=== PATIENT | female | born 1955 | race African-American/Black ===

== ENCOUNTER 2021-06-07 00:43 | Emergency (ER) | payer BC, OTHER ==
[~2021-06-07] VITALS: Ht 167.6 cm; Wt 65.4 kg
[2021-06-07] MEDS ORDERED: SODIUM CHLORIDE 0.9% 1,000 ML IV ONE (01:00)
[2021-06-07 02:28] LABS: BASOPHILS % 0.3 % (0.0-2.0); EOSINOPHILS % 0.7 % (0.0-5.0); HEMOGLOBIN. 13.8 g/dL (12.0-16.0); LYMPHOCYTES % 9.6 % (20.0-50.0); MEAN CORPUSCULAR HEMOGLOBIN 31.2 pg (28.0-32.0); MEAN CORPUSCULAR VOLUME 97.5 fL (81.0-99.0); MEAN PLATELET VOLUME 9.1 fl (7.4-10.4); MONOCYTES % 5.8 % (2.0-8.0); NEUTROPHILS % 83.6 % (40.0-76.0); PLATELET 225 x1000/uL (130-400); RED BLOOD CELL COUNT 4.41 mill/uL (4.2-5.4); RED CELL DISTRIBUTION WIDTH 14.3 % (11.6-14.6)
[2021-06-07 02:32] LABS: CHLORIDE 109 mEq/L (98-107)
[2021-06-07 02:35] LABS: INR 1.1; PROTHROMBIN TIME 11.7 sec (9.6-11.0)
[2021-06-07 02:39] LABS: LDL CHOLESTEROL 139 mg/dL (5-100)
[2021-06-07 06:31] VITALS: BP 137/62
[2021-06-07] MEDS ORDERED: IOHEXOL-350 100 ML BOTTLE ONE (07:09)
== END 2021-06-07 06:51 | disposition short-term general hospital (02) ==
LOC: ER 00:43 → CANBEDREQ 05:12 → ER 06:51
DX: I63.9 Cerebral infarction, unspecified (principal); I10 Essential (primary) hypertension; Z79.82 Long term (current) use of aspirin
CPT/HCPCS: 36415; 70450; 70496; 70498; 71045; 80053; 82962; 83721; 84484; 85025; 85610; 93005; 96360; 99291; J7030; Q9967

== ENCOUNTER 2021-07-27 14:15 | Inpatient (IN) | payer OTHER ==
[~2021-07-27] VITALS: Ht 165.1 cm; Wt 71.2 kg
[2021-07-27 15:58] LABS: HEMATOCRIT. 37.8 % (36.0-48.0); HEMOGLOBIN. 11.8 g/dL (12.0-16.0); MEAN CORPUSCULAR HEMOGLOBIN 30.5 pg (28.0-32.0); MEAN CORPUSCULAR VOLUME 97.3 fL (81.0-99.0); MEAN PLATELET VOLUME 9.3 fl (7.4-10.4); PLATELET 345 x1000/uL (130-400); RED BLOOD CELL COUNT 3.89 mill/uL (4.2-5.4)
[2021-07-27 16:03] LABS: CHLORIDE 119 mEq/L (98-107)
[2021-07-27 16:05] LABS: INR 1.2
[2021-07-27] MEDS ORDERED: FUROSEMIDE 100MG/10ML VIAL IV STA (16:26)
[2021-07-27] MEDS ORDERED: CALCIUM GLUCONATE 100MG/ML 10ML VIAL IV ONE (16:30)
[2021-07-27] MEDS ORDERED: ALBUTEROL (0.083%) 2.5MG/3ML NEB HHN ONE (16:30)
[2021-07-27] MEDS ORDERED: SODIUM CHLORIDE 0.9% 1,000 ML IV ONE (16:30)
[2021-07-27] MEDS ORDERED: INSULIN REGULAR (HUMULIN R) 300UNITS/3ML VIAL IV ONE (16:30)
[2021-07-27] MEDS ORDERED: SODIUM BICARBONATE 8.4% 1 MEQ/ML 50ML SYR IV ONE (16:30)
[2021-07-27] MEDS ORDERED: DEXTROSE 50% WATER 50ML SYRINGE IV ONE (16:30)
[2021-07-27 16:37] LABS: PLATELET ESTIMATE NORMAL
[2021-07-27 17:37] LABS: BG BASE EXCESS -9.3 mmol/L (-2.0-2.0); BG CARBOXYHEMOGLOBIN 0.3 % (0.5-1.5); BG DEOXYHEMOGLOBIN 4.2 % (0.0-5.0); BG HCO3 ACT 14.3 mmol/L (22.0-26.0); BG METHEMOGLOBIN 0.4 % (0.0-1.5); BG OXYGEN SATURATION 95.8 % (92.0-98.5); BG OXYHEMOGLOBIN 95.1 % (94.0-97.0); BG PCO2 24.8 mmHg (35.0-45.0); BG PH 7.379 (7.350-7.450); BG PO2 85.8 mmHg (75.0-100.0); BG SAMPLE SITE RIGHT RADIAL; BG TOTAL HEMOGLOBIN 11.2 g/dL (12.0-18.0); BG VENT MODE ROOM AIR
[2021-07-27 17:40] LABS: CREATINE KINASE 150 IU/L (26-192)
[2021-07-27] MEDS: CALCIUM GLUCONATE 1GM PREMIX 50 ML IV SCH ×3 (18:05→21:44)
[2021-07-27 18:34] LABS: CLARITY URINE CLOUDY (CLEAR); COLOR URINE YELLOW (YELLOW); KETONES URINE TRACE (NEGATIVE); LEUKOCYTE ESTERASE URINE 3+ (NEGATIVE); NITRITE URINE NEGATIVE (NEGATIVE); OCCULT BLOOD URINE 2+ (NEGATIVE); PROTEIN URINE 2+ (NEGATIVE); SPECIFIC GRAVITY URINE 1.014 (1.005-1.030); UROBILINOGEN URINE 0.2 E.U./dL (0.2-1.0)
[2021-07-27] MEDS: SODIUM CHLORIDE 0.45% 1,000 ML IV SCH (21:29)
[2021-07-27 23:23] VITALS: BP 106/52
[2021-07-28] VITALS (14 sets, daily range): BP systolic 84–139; BP diastolic 32–77
[2021-07-28] MEDS ORDERED: ONDANSETRON HCL 4MG/2ML INJ IV PRN (01:45)
[2021-07-28] MEDS ORDERED: LIP40 PO (01:56)
[2021-07-28] MEDS ORDERED: CILO100T PO (01:56)
[2021-07-28] MEDS ORDERED: CLOP-31 PO (01:56)
[2021-07-28] MEDS ORDERED: POTA10CA42 PO (01:56)
[2021-07-28] MEDS: SODIUM CHLORIDE 0.45% 1,000 ML IV SCH ×2 (04:22→14:02)
[2021-07-28 08:01] LABS: HEMATOCRIT. 34.1 % (36.0-48.0); HEMOGLOBIN. 10.8 g/dL (12.0-16.0); MEAN CORPUSCULAR HEMOGLOBIN 30.3 pg (28.0-32.0); MEAN CORPUSCULAR VOLUME 96.2 fL (81.0-99.0); MEAN PLATELET VOLUME 9.6 fl (7.4-10.4); PLATELET 289 x1000/uL (130-400); RED BLOOD CELL COUNT 3.55 mill/uL (4.2-5.4); RED CELL DISTRIBUTION WIDTH 14.4 % (11.6-14.6)
[2021-07-28] MEDS: CLOPIDOGREL 75MG TABLET PO SCH (08:16)
[2021-07-28] MEDS: PANTOPRAZOLE SODIUM 40 MG/VIAL IV SCH (08:16)
[2021-07-28] MEDS: CEFTRIAXONE 1,000 MG in DEXTROSE 5% WATER 50 ML IV SCH (11:06)
[2021-07-28 13:43] LABS: PLATELET ESTIMATE NORMAL
[2021-07-28] MEDS: ENOXAPARIN 60MG/0.6ML SYR SUBCUT SCH (19:35)
[2021-07-28] MEDS: DEXTROSE 5% WATER 1,000 ML IV SCH (19:35)
[2021-07-28] MEDS: ATORVASTATIN CALCIUM 40MG TABLET PO SCH (21:40)
[2021-07-29] VITALS (12 sets, daily range): BP systolic 99–130; BP diastolic 39–89
[2021-07-29] MEDS: DEXTROSE 5% WATER 1,000 ML IV SCH ×2 (04:03→18:11)
[2021-07-29 07:19] LABS: HEMOGLOBIN. 10.8 g/dL (12.0-16.0); MEAN CORPUSCULAR HEMOGLOBIN 30.8 pg (28.0-32.0); MEAN CORPUSCULAR VOLUME 97.2 fL (81.0-99.0); MEAN PLATELET VOLUME 9.6 fl (7.4-10.4); PLATELET 254 x1000/uL (130-400); RED CELL DISTRIBUTION WIDTH 14.7 % (11.6-14.6)
[2021-07-29] MEDS: CEFTRIAXONE 1,000 MG in DEXTROSE 5% WATER 50 ML IV SCH (09:08)
[2021-07-29] MEDS: PANTOPRAZOLE SODIUM 40 MG/VIAL IV SCH (09:08)
[2021-07-29] MEDS: CLOPIDOGREL 75MG TABLET PO SCH (09:11)
[2021-07-29 12:50] LABS: PLATELET ESTIMATE NORMAL
[2021-07-29] MEDS: ENOXAPARIN 60MG/0.6ML SYR SUBCUT SCH (18:12)
[2021-07-29] MEDS: ATORVASTATIN CALCIUM 40MG TABLET PO SCH (21:47)
[2021-07-30] VITALS (13 sets, daily range): BP systolic 104–127; BP diastolic 27–80
[2021-07-30 07:05] LABS: HEMATOCRIT. 32.9 % (36.0-48.0); HEMOGLOBIN. 10.5 g/dL (12.0-16.0); MEAN CORPUSCULAR HEMOGLOBIN 30.5 pg (28.0-32.0); MEAN CORPUSCULAR VOLUME 95.6 fL (81.0-99.0); MEAN PLATELET VOLUME 9.4 fl (7.4-10.4); PLATELET 238 x1000/uL (130-400); RED BLOOD CELL COUNT 3.44 mill/uL (4.2-5.4); RED CELL DISTRIBUTION WIDTH 14.7 % (11.6-14.6)
[2021-07-30] MEDS: CEFTRIAXONE 1,000 MG in DEXTROSE 5% WATER 50 ML IV SCH (09:36)
[2021-07-30] MEDS: CLOPIDOGREL 75MG TABLET PO SCH (09:36)
[2021-07-30] MEDS: DEXTROSE 5% WATER 1,000 ML IV SCH (09:36)
[2021-07-30] MEDS: PANTOPRAZOLE SODIUM 40 MG/VIAL IV SCH (09:36)
[2021-07-30 10:42] LABS: PLATELET ESTIMATE NORMAL
[2021-07-30] MEDS: ENOXAPARIN 60MG/0.6ML SYR SUBCUT SCH (18:39)
[2021-07-30] MEDS: ATORVASTATIN CALCIUM 40MG TABLET PO SCH (20:41)
[2021-07-31] VITALS (12 sets, daily range): BP systolic 103–130; BP diastolic 51–64
[2021-07-31] MEDS: DEXTROSE 5% WATER 1,000 ML IV SCH (05:27)
[2021-07-31 06:15] LABS: HEMATOCRIT. 36.6 % (36.0-48.0); HEMOGLOBIN. 11.5 g/dL (12.0-16.0); MEAN CORPUSCULAR HEMOGLOBIN 30.5 pg (28.0-32.0); MEAN CORPUSCULAR VOLUME 96.9 fL (81.0-99.0); MEAN PLATELET VOLUME 9.6 fl (7.4-10.4); PLATELET 195 x1000/uL (130-400); RED BLOOD CELL COUNT 3.78 mill/uL (4.2-5.4)
[2021-07-31 08:07] LABS: ANTI-NUCLEAR ANTIBODIES DIRECT Negative (Negative)
[2021-07-31] MEDS: CEFTRIAXONE 1,000 MG in DEXTROSE 5% WATER 50 ML IV SCH (09:52)
[2021-07-31] MEDS: CLOPIDOGREL 75MG TABLET PO SCH (09:52)
[2021-07-31] MEDS: PANTOPRAZOLE SODIUM 40 MG/VIAL IV SCH (09:52)
[2021-07-31] MEDS: THIAMINE HCL 100MG TABLET PO SCH (09:52)
[2021-07-31] MEDS ORDERED: BISACODYL 10MG SUPP PR NR (11:15)
[2021-07-31 13:37] LABS: PLATELET ESTIMATE NORMAL
[2021-07-31] MEDS: ENOXAPARIN 60MG/0.6ML SYR SUBCUT SCH (17:08)
[2021-07-31] MEDS: ATORVASTATIN CALCIUM 40MG TABLET PO SCH (20:14)
[2021-08-01] VITALS (11 sets, daily range): BP systolic 100–136; BP diastolic 53–63
[2021-08-01] MEDS: DEXTROSE 5% WATER 1,000 ML IV SCH (02:28)
[2021-08-01 06:51] LABS: HEMATOCRIT. 33.6 % (36.0-48.0); HEMOGLOBIN. 10.8 g/dL (12.0-16.0); MEAN CORPUSCULAR HEMOGLOBIN 31.2 pg (28.0-32.0); MEAN CORPUSCULAR VOLUME 96.8 fL (81.0-99.0); MEAN PLATELET VOLUME 9.4 fl (7.4-10.4); PLATELET 205 x1000/uL (130-400); RED BLOOD CELL COUNT 3.48 mill/uL (4.2-5.4); RED CELL DISTRIBUTION WIDTH 14.6 % (11.6-14.6)
[2021-08-01 07:01] LABS: HEPATITIS B SURFACE ANTIGEN NEGATIVE
[2021-08-01 07:09] LABS: CHLORIDE 110 mEq/L (98-107)
[2021-08-01] MEDS: PANTOPRAZOLE SODIUM 40 MG/VIAL IV SCH (08:23)
[2021-08-01] MEDS: THIAMINE HCL 100MG TABLET PO SCH (08:23)
[2021-08-01] MEDS: CLOPIDOGREL 75MG TABLET PO SCH (08:23)
[2021-08-01] MEDS: CEFTRIAXONE 1,000 MG in DEXTROSE 5% WATER 50 ML IV SCH (08:28)
[2021-08-01] MEDS: SODIUM CHLORIDE 0.45% 1,000 ML IV SCH (09:51)
[2021-08-01] MEDS: FLUCONAZOLE 100MG TABLET PO SCH (17:00)
[2021-08-01] MEDS: ENOXAPARIN 60MG/0.6ML SYR SUBCUT SCH (17:00)
[2021-08-01 20:23] LABS: PLATELET ESTIMATE NORMAL
[2021-08-01] MEDS: ATORVASTATIN CALCIUM 40MG TABLET PO SCH (22:09)
[2021-08-02] VITALS (12 sets, daily range): BP systolic 108–134; BP diastolic 48–78
[2021-08-02] MEDS: SODIUM CHLORIDE 0.45% 1,000 ML IV SCH ×2 (01:30→20:35)
[2021-08-02 07:02] LABS: HEMATOCRIT. 33.5 % (36.0-48.0); HEMOGLOBIN. 10.7 g/dL (12.0-16.0); MEAN CORPUSCULAR HEMOGLOBIN 31.1 pg (28.0-32.0); MEAN CORPUSCULAR VOLUME 97.6 fL (81.0-99.0); MEAN PLATELET VOLUME 9.3 fl (7.4-10.4); PLATELET 196 x1000/uL (130-400); RED BLOOD CELL COUNT 3.44 mill/uL (4.2-5.4)
[2021-08-02] MEDS: PANTOPRAZOLE SODIUM 40 MG/VIAL IV SCH (08:23)
[2021-08-02] MEDS: THIAMINE HCL 100MG TABLET PO SCH (08:24)
[2021-08-02] MEDS: FLUCONAZOLE 100MG TABLET PO SCH (08:24)
[2021-08-02] MEDS: CLOPIDOGREL 75MG TABLET PO SCH (08:24)
[2021-08-02] MEDS: CEFTRIAXONE 1,000 MG in DEXTROSE 5% WATER 50 ML IV SCH (08:24)
[2021-08-02] MEDS ORDERED: POTASSIUM CHLORIDE 20MEQ/PACKET PO SCH (08:45)
[2021-08-02 11:54] LABS: PLATELET ESTIMATE NORMAL
[2021-08-02] MEDS: ENOXAPARIN 60MG/0.6ML SYR SUBCUT SCH (17:06)
[2021-08-02] MEDS: ATORVASTATIN CALCIUM 40MG TABLET PO SCH (20:35)
[2021-08-03] VITALS (9 sets, daily range): BP systolic 108–135; BP diastolic 49–79
[2021-08-03 06:57] LABS: HEMATOCRIT. 32.1 % (36.0-48.0); HEMOGLOBIN. 10.4 g/dL (12.0-16.0); MEAN CORPUSCULAR HEMOGLOBIN 31.2 pg (28.0-32.0); MEAN CORPUSCULAR VOLUME 96.3 fL (81.0-99.0); MEAN PLATELET VOLUME 9.4 fl (7.4-10.4); PLATELET 237 x1000/uL (130-400); RED BLOOD CELL COUNT 3.34 mill/uL (4.2-5.4); RED CELL DISTRIBUTION WIDTH 14.3 % (11.6-14.6)
[2021-08-03 07:02] LABS: PHOSPHORUS 1.4 mg/dL (2.5-4.9)
[2021-08-03] MEDS: FAMOTIDINE 20MG/2ML VIAL IV SCH (08:31)
[2021-08-03] MEDS: FLUCONAZOLE 100MG TABLET PO SCH (08:31)
[2021-08-03] MEDS: CLOPIDOGREL 75MG TABLET PO SCH (08:31)
[2021-08-03] MEDS: THIAMINE HCL 100MG TABLET PO SCH (08:31)
[2021-08-03 11:44] LABS: PLATELET ESTIMATE NORMAL
[2021-08-03] MEDS: SODIUM CHLORIDE 0.45% 1,000 ML IV SCH (12:34)
[2021-08-03] MEDS ORDERED: POTASSIUM PHOS,M-BASIC-D-BASIC 15 MMOL in DEXT 5% WATER 245 ML IV ONE (18:30)
[2021-08-03] MEDS ORDERED: MAGNESIUM 2 G PREMIX 50 ML IV ONE (18:30)
[2021-08-03] MEDS: ENOXAPARIN 60MG/0.6ML SYR SUBCUT SCH (19:11)
[2021-08-03] MEDS: ATORVASTATIN CALCIUM 40MG TABLET PO SCH (21:03)
[2021-08-04] VITALS: BP 123/64
[2021-08-04] MEDS: SODIUM CHLORIDE 0.45% 1,000 ML IV SCH ×2 (02:51→20:29)
[2021-08-04 04:00] VITALS: BP 112/71
[2021-08-04 08:00] VITALS: BP 131/68
[2021-08-04] MEDS: NYSTATIN POWDER 15GM TOP SCH ×3 (09:30→17:00)
[2021-08-04 09:50] LABS: PHOSPHORUS 2.2 mg/dL (2.5-4.9)
[2021-08-04] MEDS: FAMOTIDINE 20MG/2ML VIAL IV SCH (10:17)
[2021-08-04] MEDS: FLUCONAZOLE 100MG TABLET PO SCH (10:17)
[2021-08-04] MEDS: THIAMINE HCL 100MG TABLET PO SCH (10:17)
[2021-08-04 12:00] VITALS: BP 122/72
[2021-08-04 16:00] VITALS: BP 120/56
[2021-08-04] MEDS ORDERED: NALOXONE HCL 0.4MG/ML VIAL IV PRN (17:15)
[2021-08-04] MEDS: ENOXAPARIN 60MG/0.6ML SYR SUBCUT SCH (17:46)
[2021-08-04] MEDS: TRAMADOL 50MG TABLET PO PRN (17:47)
[2021-08-04 20:00] VITALS: BP 109/52
[2021-08-04] MEDS: ATORVASTATIN CALCIUM 40MG TABLET PO SCH (20:29)
[2021-08-05] VITALS: BP 107/49
[2021-08-05 04:00] VITALS: BP 110/60
[2021-08-05 05:29] LABS: BASOPHILS % 0.3 % (0.0-2.0); EOSINOPHILS % 1.5 % (0.0-5.0); HEMATOCRIT. 29.3 % (36.0-48.0); HEMOGLOBIN. 9.5 g/dL (12.0-16.0); LYMPHOCYTES % 13.3 % (20.0-50.0); MEAN CORPUSCULAR VOLUME 95.5 fL (81.0-99.0); MEAN PLATELET VOLUME 8.9 fl (7.4-10.4); NEUTROPHILS % 78.9 % (40.0-76.0); PLATELET 259 x1000/uL (130-400); RED BLOOD CELL COUNT 3.07 mill/uL (4.2-5.4); RED CELL DISTRIBUTION WIDTH 14.6 % (11.6-14.6)
[2021-08-05] MEDS ORDERED: POTASSIUM CHLORIDE 20MEQ TABLET SR PO SCH (07:15)
[2021-08-05 08:00] VITALS: BP 121/55
[2021-08-05 09:04] LABS: PHOSPHORUS 1.8 mg/dL (2.5-4.9)
[2021-08-05] MEDS: THIAMINE HCL 100MG TABLET PO SCH (10:17)
[2021-08-05] MEDS: FAMOTIDINE 20MG/2ML VIAL IV SCH (10:17)
[2021-08-05] MEDS: FLUCONAZOLE 100MG TABLET PO SCH (10:17)
[2021-08-05] MEDS: NYSTATIN POWDER 15GM TOP SCH (10:58)
[2021-08-05 12:00] VITALS: BP 126/69
[2021-08-05] MEDS ORDERED: POTASSIUM PHOS,M-BASIC-D-BASIC 15 MMOL in DEXT 5% WATER 245 ML IV SCH (13:00)
[2021-08-05] MEDS: SODIUM CHLORIDE 0.45% 1,000 ML IV SCH (13:52)
[2021-08-05 16:00] VITALS: BP 132/64
[2021-08-05] MEDS: ENOXAPARIN 60MG/0.6ML SYR SUBCUT SCH (18:10)
[2021-08-05 20:00] VITALS: BP 116/55
[2021-08-05] MEDS: ATORVASTATIN CALCIUM 40MG TABLET PO SCH (22:59)
[2021-08-06] VITALS: BP 125/59
[2021-08-06 04:00] VITALS: BP 141/69
[2021-08-06] MEDS: SODIUM CHLORIDE 0.45% 1,000 ML IV SCH ×2 (05:29→22:16)
[2021-08-06] MEDS ORDERED: CEFAZOLIN 1000MG PREMIX 50 ML IV NR (07:00)
[2021-08-06 07:41] LABS: INR 1.1
[2021-08-06 07:54] LABS: BASOPHILS % 0.3 % (0.0-2.0); EOSINOPHILS % 1.2 % (0.0-5.0); HEMATOCRIT. 28.7 % (36.0-48.0); HEMOGLOBIN. 9.2 g/dL (12.0-16.0); LYMPHOCYTES % 13.7 % (20.0-50.0); MEAN CORPUSCULAR HEMOGLOBIN 30.7 pg (28.0-32.0); MEAN CORPUSCULAR VOLUME 95.5 fL (81.0-99.0); MEAN PLATELET VOLUME 8.7 fl (7.4-10.4); MONOCYTES % 6.6 % (2.0-8.0); NEUTROPHILS % 78.2 % (40.0-76.0); PLATELET 304 x1000/uL (130-400); RED CELL DISTRIBUTION WIDTH 14.5 % (11.6-14.6)
[2021-08-06 08:00] VITALS: BP 119/58
[2021-08-06] MEDS: FLUCONAZOLE 100MG TABLET PO SCH (08:24)
[2021-08-06] MEDS: FAMOTIDINE 20MG/2ML VIAL IV SCH (08:24)
[2021-08-06] MEDS: THIAMINE HCL 100MG TABLET PO SCH (08:25)
[2021-08-06] MEDS: NYSTATIN POWDER 15GM TOP SCH (08:26)
[2021-08-06 12:00] VITALS: BP 131/60
[2021-08-06] MEDS ORDERED: MIDAZOLAM HCL 5 MG/5 ML VIAL ONE (13:18)
[2021-08-06] MEDS ORDERED: FENTANYL CITRATE/PF 50MCG/ML 2ML VIAL ONE (13:18)
[2021-08-06] MEDS ORDERED: FENTANYL CITRATE/PF 50MCG/ML 2ML VIAL IV PRN (13:42)
[2021-08-06] MEDS ORDERED: MIDAZOLAM HCL 5 MG/5 ML VIAL IV PRN (13:43)
[2021-08-06] MEDS ORDERED: POTASSIUM CHLORIDE 20MEQ/PACKET NG NR (14:15)
[2021-08-06] MEDS: ENOXAPARIN 60MG/0.6ML SYR SUBCUT SCH (14:53)
[2021-08-06 15:38] LABS: PHOSPHORUS 2.3 mg/dL (2.5-4.9)
[2021-08-06 16:00] VITALS: BP 150/80
[2021-08-06 20:00] VITALS: BP 122/51
[2021-08-06] MEDS: ATORVASTATIN CALCIUM 40MG TABLET PO SCH (22:15)
[2021-08-07] VITALS: BP 107/52
[2021-08-07 04:00] VITALS: BP 143/62
[2021-08-07 05:47] LABS: BASOPHILS % 0.3 % (0.0-2.0); EOSINOPHILS % 1.2 % (0.0-5.0); HEMATOCRIT. 31.9 % (36.0-48.0); HEMOGLOBIN. 10.4 g/dL (12.0-16.0); LYMPHOCYTES % 9.8 % (20.0-50.0); MEAN CORPUSCULAR HEMOGLOBIN 30.9 pg (28.0-32.0); MEAN PLATELET VOLUME 8.4 fl (7.4-10.4); NEUTROPHILS % 83.7 % (40.0-76.0); PLATELET 326 x1000/uL (130-400); RED BLOOD CELL COUNT 3.36 mill/uL (4.2-5.4); RED CELL DISTRIBUTION WIDTH 14.5 % (11.6-14.6)
[2021-08-07 08:00] VITALS: BP 112/63
[2021-08-07] MEDS: CLOPIDOGREL 75MG TABLET PO SCH (08:26)
[2021-08-07] MEDS: NYSTATIN POWDER 15GM TOP SCH (08:26)
[2021-08-07] MEDS: THIAMINE HCL 100MG TABLET PO SCH (08:26)
[2021-08-07] MEDS: FAMOTIDINE 20MG/2ML VIAL IV SCH (08:26)
[2021-08-07 12:00] VITALS: BP 132/68
[2021-08-07 16:00] VITALS: BP 147/69
[2021-08-07 20:00] VITALS: BP 147/71
[2021-08-07] MEDS: ATORVASTATIN CALCIUM 40MG TABLET PO SCH (20:47)
[2021-08-07] MEDS: ENOXAPARIN 80MG/0.8ML SYR SUBCUT SCH (20:48)
[2021-08-08] VITALS: BP 139/70
[2021-08-08 04:00] VITALS: BP 123/63
[2021-08-08 06:49] LABS: CHLORIDE 111 mEq/L (98-107)
[2021-08-08 06:53] LABS: BASOPHILS % 0.3 % (0.0-2.0); EOSINOPHILS % 1.2 % (0.0-5.0); HEMATOCRIT. 29.3 % (36.0-48.0); HEMOGLOBIN. 9.5 g/dL (12.0-16.0); LYMPHOCYTES % 8.4 % (20.0-50.0); MEAN CORPUSCULAR HEMOGLOBIN 30.8 pg (28.0-32.0); MEAN CORPUSCULAR VOLUME 94.6 fL (81.0-99.0); MEAN PLATELET VOLUME 8.3 fl (7.4-10.4); MONOCYTES % 4.7 % (2.0-8.0); NEUTROPHILS % 85.4 % (40.0-76.0); PLATELET 376 x1000/uL (130-400); RED CELL DISTRIBUTION WIDTH 14.5 % (11.6-14.6)
[2021-08-08 07:03] LABS: PHOSPHORUS 1.4 mg/dL (2.5-4.9)
[2021-08-08 08:00] VITALS: BP 140/65
[2021-08-08] MEDS: THIAMINE HCL 100MG TABLET PO SCH (10:15)
[2021-08-08] MEDS: CLOPIDOGREL 75MG TABLET PO SCH (10:16)
[2021-08-08] MEDS: FAMOTIDINE 20MG TABLET PO SCH (10:16)
[2021-08-08] MEDS: NYSTATIN POWDER 15GM TOP SCH (10:17)
[2021-08-08] MEDS: ENOXAPARIN 80MG/0.8ML SYR SUBCUT SCH ×2 (10:18→20:05)
[2021-08-08 12:00] VITALS: BP 109/55
[2021-08-08] MEDS ORDERED: POTASSIUM CHLORIDE 20MEQ TABLET SR PO NR (14:30)
[2021-08-08 16:00] VITALS: BP 137/55
[2021-08-08] MEDS ORDERED: OXYMETAZOLINE HCL NASAL SPRAY 15ML BOTHNSTRLS PRN (16:30)
[2021-08-08] MEDS: TRAMADOL 50MG TABLET PO PRN (17:44)
[2021-08-08 20:00] VITALS: BP 155/80
[2021-08-08] MEDS: ATORVASTATIN CALCIUM 40MG TABLET PO SCH (20:48)
[2021-08-09] VITALS: BP 158/69
[2021-08-09 04:00] VITALS: BP 153/67
[2021-08-09 05:58] LABS: BASOPHILS % 0.4 % (0.0-2.0); EOSINOPHILS % 2.5 % (0.0-5.0); HEMATOCRIT. 27.5 % (36.0-48.0); LYMPHOCYTES % 13.3 % (20.0-50.0); MEAN CORPUSCULAR VOLUME 95.2 fL (81.0-99.0); MEAN PLATELET VOLUME 8.2 fl (7.4-10.4); MONOCYTES % 5.3 % (2.0-8.0); NEUTROPHILS % 78.5 % (40.0-76.0); PLATELET 369 x1000/uL (130-400); RED BLOOD CELL COUNT 2.89 mill/uL (4.2-5.4); RED CELL DISTRIBUTION WIDTH 14.4 % (11.6-14.6)
[2021-08-09 06:05] LABS: CHLORIDE 113 mEq/L (98-107)
[2021-08-09 06:10] LABS: PHOSPHORUS 1.9 mg/dL (2.5-4.9)
[2021-08-09 08:00] VITALS: BP 135/57
[2021-08-09] MEDS: THIAMINE HCL 100MG TABLET PO SCH (10:03)
[2021-08-09] MEDS: CLOPIDOGREL 75MG TABLET PO SCH (10:03)
[2021-08-09] MEDS: FAMOTIDINE 20MG TABLET PO SCH (10:03)
[2021-08-09] MEDS: ENOXAPARIN 80MG/0.8ML SYR SUBCUT SCH ×2 (10:03→22:15)
[2021-08-09] MEDS: NYSTATIN POWDER 15GM TOP SCH (10:06)
[2021-08-09 12:00] VITALS: BP 158/64
[2021-08-09] MEDS ORDERED: MAGNESIUM 2 G PREMIX 50 ML IV NR (13:00)
[2021-08-09] MEDS ORDERED: POTASSIUM PHOS,M-BASIC-D-BASIC 20 MMOL in DEXT 5% WATER 243.3333 ML IV NR (13:00)
[2021-08-09 16:00] VITALS: BP 135/70
[2021-08-09 20:00] VITALS: BP 147/60
[2021-08-09] MEDS: ATORVASTATIN CALCIUM 40MG TABLET PO SCH (22:15)
[2021-08-10] VITALS (7 sets, daily range): BP systolic 106–159; BP diastolic 66–80
[2021-08-10 00:18] LABS: HEMATOCRIT 28.8 % (36.0-48.0); HEMOGLOBIN 9.6 g/dL (12.0-16.0)
[2021-08-10 06:18] LABS: BASOPHILS % 0.5 % (0.0-2.0); EOSINOPHILS % 2.2 % (0.0-5.0); HEMATOCRIT. 27.9 % (36.0-48.0); HEMOGLOBIN. 9.2 g/dL (12.0-16.0); LYMPHOCYTES % 14.7 % (20.0-50.0); MEAN PLATELET VOLUME 7.9 fl (7.4-10.4); MONOCYTES % 5.5 % (2.0-8.0); NEUTROPHILS % 77.1 % (40.0-76.0); PLATELET 435 x1000/uL (130-400); RED BLOOD CELL COUNT 2.97 mill/uL (4.2-5.4); RED CELL DISTRIBUTION WIDTH 14.6 % (11.6-14.6)
[2021-08-10 06:34] LABS: CHLORIDE 112 mEq/L (98-107)
[2021-08-10 06:42] LABS: PHOSPHORUS 3.9 mg/dL (2.5-4.9)
[2021-08-10] MEDS: CLOPIDOGREL 75MG TABLET PO SCH (10:22)
[2021-08-10] MEDS: ENOXAPARIN 80MG/0.8ML SYR SUBCUT SCH (10:22)
[2021-08-10] MEDS: THIAMINE HCL 100MG TABLET PO SCH (10:22)
[2021-08-10] MEDS: FAMOTIDINE 20MG TABLET PO SCH (10:22)
[2021-08-10] MEDS: NYSTATIN POWDER 15GM TOP SCH (10:23)
[2021-08-10] MEDS ORDERED: ACETAMINOPHEN 325MG TABLET PO PRN (12:15)
== END 2021-08-10 20:00 | DRG 871 ==
LOC: ER 14:15 → 3WST 16:49 → EDBEDREQTM 16:50 → EDBEDREQSVC 16:50 → EDBEDREQ 16:50 → ENRESERV 20:16 → 8WST 08-03 11:51
PROVIDERS: ADMIT Internal Medicine; ATTEND Internal Medicine
PROC: 0DH68UZ Insertion of Feeding Device into Stomach, Via Natural or Artificial Opening Endoscopic (ICD-10-PCS; principal; 2021-08-06)
DX: A41.9 Sepsis, unspecified organism (principal); R65.21 Severe sepsis with septic shock; E43 Unspecified severe protein-calorie malnutrition; N17.0 Acute kidney failure with tubular necrosis; E87.0 Hyperosmolality and hypernatremia; N39.0 Urinary tract infection, site not specified; I82.402 Acute embolism and thrombosis of unspecified deep veins of left lower extremity; D64.9 Anemia, unspecified; E87.5 Hyperkalemia; E87.8 Other disorders of electrolyte and fluid balance, not elsewhere classified; F17.210 Nicotine dependence, cigarettes, uncomplicated; K74.60 Unspecified cirrhosis of liver; M79.7 Fibromyalgia; I12.9 Hypertensive chronic kidney disease with stage 1 through stage 4 chronic kidney disease, or unspecified chronic kidney disease; K29.70 Gastritis, unspecified, without bleeding; K44.9 Diaphragmatic hernia without obstruction or gangrene; K57.30 Diverticulosis of large intestine without perforation or abscess without bleeding; K76.0 Fatty (change of) liver, not elsewhere classified; N18.9 Chronic kidney disease, unspecified; N93.9 Abnormal uterine and vaginal bleeding, unspecified; Z20.822 Contact with and (suspected) exposure to COVID-19; R13.12 Dysphagia, oropharyngeal phase; E11.22 Type 2 diabetes mellitus with diabetic chronic kidney disease; R74.01 Elevation of levels of liver transaminase levels; F41.9 Anxiety disorder, unspecified; K80.20 Calculus of gallbladder without cholecystitis without obstruction; Z74.01 Bed confinement status; Z86.73 Personal history of transient ischemic attack (TIA), and cerebral infarction without residual deficits; Z93.1 Gastrostomy status; Z88.6 Allergy status to analgesic agent; Z68.26 Body mass index [BMI] 26.0-26.9, adult; R19.09 Other intra-abdominal and pelvic swelling, mass and lump
CPT/HCPCS: 36415; 36600; 71045; 73080; 73120; 74018; 74176; 76700; 76770; 76856; 80048; 80053; 80076; 81003; 82375; 82550; 82805; 82962; 83735; 84100; 84132; 85014; 85018; 85025; 86038; 86160; 86705; 86709; 86803; 86850; 86900; 87106; 87340; 87426; 92610; 93005; 93970; 94644; 99291; A6261; C1893; C9113; J0610; J0690; J0696; J1650; J1815; J1940; J2250; J2405; J3010; J3475; J3490; J7030; J7040; J7060; J7070; A4315